=== PATIENT | female | born 1965 | race Hispanic/Latino ===

== ENCOUNTER 2021-01-28 07:21 | Day surgery (SDC) | payer BC ==
[2021-01-28] VITALS (7 sets, daily range): BP systolic 80–124; BP diastolic 40–56
[~2021-01-28] VITALS: Ht 165.1 cm; Wt 52.2 kg
[2021-01-28] MEDS ORDERED: 0.9%NACL 1000ML 1,000 ML IV ONE (07:45)
[2021-01-28] MEDS ORDERED: TACR1GRA PO (08:32)
[2021-01-28] MEDS ORDERED: ENTE0.5T12 PO (08:32)
[2021-01-28] MEDS ORDERED: CALC-909 PO (08:32)
[2021-01-28] MEDS ORDERED: BIOT10004 PO (08:32)
[2021-01-28] MEDS ORDERED: TACR0.5C12 PO (08:32)
[2021-01-28] MEDS ORDERED: MIDAZOLAM HCL 1 MG/ML 2ML VIAL ONE (10:59)
[2021-01-28] MEDS ORDERED: PROPOFOL 10 MG/ML 20ML VIAL IV ONE ×2 (10:59)
[2021-01-28] MEDS ORDERED: SUCCINYLCHOLINE 200MG/10ML SYR ONE (11:00)
[2021-01-28] MEDS ORDERED: LIDOCAINE HCL 400MG/20ML VIAL ONE (11:00)
[2021-01-28] MEDS ORDERED: LEVOFLOXACIN 500 MG/D5W 100 ML 100 ML IV SCH (11:00)
[2021-01-28] MEDS ORDERED: IOHEXOL-350 50ML VIAL IV ONE (11:10)
== END 2021-01-28 13:00 | disposition home or self-care (01) ==
LOC: ENDO 07:21 → DAH 07:21 → ENDO 13:00
PROVIDERS: ATTEND Internal Medicine Gastroenterology
DX: K83.1 Obstruction of bile duct (principal); K83.8 Other specified diseases of biliary tract; Z20.822 Contact with and (suspected) exposure to COVID-19; K21.9 Gastro-esophageal reflux disease without esophagitis; T86.41 Liver transplant rejection; Z98.890 Other specified postprocedural states; Z90.49 Acquired absence of other specified parts of digestive tract; Z79.899 Other long term (current) drug therapy
CPT/HCPCS: 43264; 43274; 74328; 87635; A4215 ×3; A4221; A4222; A4223; A4606; A4649; A4657; A4663; C1769; C1773; C2625 ×2; C9803; J0330; J1956; J2250; J2704; J3490; J7030; Q9967; 74330